=== PATIENT | female | born 1935 | race Caucasian/White ===

== ENCOUNTER 2019-08-28 16:52 | Emergency (ER) | payer MEDICARE, OTHER ==
--- NOTE | 2019-08-28 17:15 | EDM.PDOC ---
ED HPI GENERAL MEDICAL PROBLEM - General Chief Complaint: Skin Complaint Stated Complaint: RT LEG THIGH WELT WITH BRUISE Time Seen by Provider: 08/28/19 17:00 Source of Information: Reports: Patient, Family (son) History Limitations: Reports: No Limitations - History of Present Illness INITIAL COMMENTS - FREE TEXT/NARRATIVE: 83-year-old female presents the ED with a very pruritic papule medial proximal thigh that started over 2 days ago. She awoke with it and presumably was stung or bitten by some form of insect during her sleep. The area is intensely pruritic. Concern arose today because of bruising that showed up lateral and around the area today. The itching is improved with hydrocortisone cream topically. Onset: Sudden Onset Date: 08/26/19 (Awoke with symptoms 2 mornings ago.) Duration: Day(s):, Other (Changing in terms that there is a superficial bruising showing up around the lesion today.) Location: Reports: Lower Extremity, Right (Right proximal anterior thigh.) Quality: Reports: Other (Tenths pruritus at the papule. Surrounding bruising) Severity: Mild Improves with: Reports: Medication (Itching improves with topical hydrocortisone 1% cream.) Worsens with: Reports: None Context: Reports: Other (Unknown although clinically it appears to be an insect sting.). Denies: Activity, Exercise, Lifting, Sick Contact, Trauma Associated Symptoms: Reports: No Other Symptoms Treatments STITCHER UTILITY: Reports: Other (see below) - Related Data Allergies Allergy/AdvReac Type Severity Reaction Status Date / Time estradiol Allergy Rash Verified 06/18/16 10:48 Home Meds: Home Meds Alendronate Sodium [Alendronate] 35 mg PO MO 08/01/14 [History] Estrogens, Conjugated [Premarin Vaginal Crm] 1 applicful VAG BEDTIME 08/01/14 [ History] Fenofibrate Nanocrystallized [Tricor] 145 mg PO DAILY 08/01/14 [History] Levothyroxine [Synthroid] 88 mcg PO DAILY 08/01/14 [History] atorvaSTATin [Lipitor] 20 mg PO BEDTIME 08/01/14 [History] Biotin 1 mg PO BID 06/15/16 [History] Calcium/Magnesium/Vit D3 [Calcium 500 MG] 500 mg PO DAILY 06/15/16 [History] Ciprofloxacin HCl [Cipro] 250 mg PO ASDIRECTED 06/15/16 [History] Cranberry 500 mg PO DAILY PRN 06/15/16 [History] Cyanocobalamin (Vitamin B12) [Vitamin B13] 500 mcg PO DAILY 06/15/16 [History] Garlic 1,000 mg PO DAILY 06/15/16 [History] L. Acidophilus/L. Rhamnosus [Probiotic 15 Billion Cell Cap] 1 each PO DAILY [History] Lecithin 1,200 mg PO DAILY 06/15/16 [History] Magnesium 200 mg PO DAILY 06/15/16 [History] Multivitamin [Multivitamins] 1 each PO DAILY 06/15/16 [History] Pyridoxine HCl [Vitamin B-6] 100 mg PO DAILY 06/15/16 [History] Ubidecarenone [Co Q10] 100 mg PO DAILY 06/15/16 [History] Past Medical History Cardiovascular History: Reports: High Cholesterol (Particularly hypertriglyceridemia.) Gastrointestinal History: Reports: GERD Genitourinary History: Reports: Renal Calculus, UTI, Recurrent Neurological History: Endocrine/Metabolic History: Reports: Hypothyroidism (On levothyroxine supplement.), Osteoporosis, Vitamin D Deficiency - Past Surgical History Head Surgeries/Procedures: Reports: None Other Head Surgeries/Procedures: Patient has had plastic surgery of the face which includes upper and lower blepharoplasties forehead or browlift as well as dermabrasion to the nasolabial fold areas and neck tuck. He is healing up from these wounds over the last 6 months. HEENT Surgical History: Reports: None GI Surgical History: Reports: Appendectomy Dermatological Surgical History: Reports: None Social & Family History - Living Situation & Occupation Living situation: Reports: Occupation: Retired ED ROS GENERAL - Review of Systems Review Of Systems: See Below Constitutional: Denies: Fever, Chills, Malaise, Weakness, Fatigue HEENT: Reports: No Symptoms Respiratory: Reports: No Symptoms Cardiovascular: Reports: No Symptoms, Other (Has hyper cholesterolemia.) Endocrine: Reports: Fatigue GI/Abdominal: Reports: No Symptoms : Reports: Frequency Musculoskeletal: Reports: Joint Pain (Knee sips low back and neck at times.) Skin: Reports: Other (Pruritic skin papule) Neurological: Reports: No Symptoms ( proximal right thigh see history of present illness) Psychiatric: Reports: No Symptoms Hematologic/Lymphatic: Reports: No Symptoms Immunologic: Reports: No Symptoms ED EXAM, SKIN/RASH Exam: See Below Exam Limited By: No Limitations General Appearance: Alert, WD/WN, No Apparent Distress, Other (Vital signs are all normal except for blood pressure slightly elevated 1 [id number].) Eye Exam: Bilateral Eye: Normal Inspection (Has had upper and lower blepharoplasties performed recently.) Skin: Other ( has a papular erythematous area approximately 6-7 mm in oval shape proximal right anterior thigh. It does appear to have a central punctum suggesting this is an insect sting with localized allergic reaction. The surrounding bruising is from scratching probably at night will she's sleeping. Her greatest concern was. Itching is slowly improving and does improve with hydrocortisone cream topically.) Location, Skin: Lower Extremity, Right (Right proximal anterior thigh just below the panty line.) Course - Vital Signs Last Recorded V/S: Last Vital Signs Temp 36.2 C 08/28/19 17:14 Pulse 66 08/28/19 17:14 Resp 20 08/28/19 17:14 BP 144/74 H 08/28/19 17:14 Pulse Ox 97 08/28/19 17:14 - Radiology Interpretation Free Text/Narrative:: 83-year-old female presents the ED with a very pruritic erythematous papule about 7 mm in size anterior proximal right thigh. She awoke with this lesion about 2 days ago. The area is intensely pruritic. When I look at it it it does appear to be an insect sting with localized allergic response. Likely from a spider this time of year. There is surrounding bruising particularly lateral to the lesion but this is from scratching likely when she is sleeping. He assured in this regard. She'll continue to use hydrocortisone cream on the lesion as it is easing up the itch and will likely be much improved by the end of tomorrow she'll be 72 hours. Patient and son reassured in this regard. Departure - Departure Time of Disposition: 17:12 Disposition: Home, Self-Care 01 Condition: Fair Clinical Impression: Local reaction to insect sting Qualifiers: Encounter type: initial encounter Injury intent: accidental or unintentional Qualified Code(s): T63.481A - Toxic effect of venom of other arthropod, accidental (unintentional), initial encounter - Discharge Information *PRESCRIPTION DRUG MONITORING PROGRAM REVIEWED*: Not Applicable *COPY OF PRESCRIPTION DRUG MONITORING REPORT IN PATIENT ADRIAN: Not Applicable Referrals: Josue Caldwell MD [Primary Care Provider] - Forms: ED Department Discharge Additional Instructions: Evaluation the emergency room in regards to a strongly suspected insects sting to the upper anterior right thigh that occurred over 2 days ago. Has been intensely itchy indicating a localized allergic response. 3 at this time what type of insect cause this inflammation. It usually is an insect that contains some venom that we become allergic to such as a wasp, Bee, or spider bite. The bruising surrounding it is usually due to scratching the area sometimes at night when sleeping and it has caused some superficial bruising in the skin lateral to the sting. Continue using hydrocortisone cream on it up to 3 times or 4 times daily. It usually will dissipate on its own over the next 24 hours or so.
[2019-08-28 17:17] VITALS: BP 144/74; PULSE 66
== END 2019-08-28 17:21 | disposition home or self-care (01) ==
LOC: JD.ED 16:52
DX: T63.481A Toxic effect of venom of other arthropod, accidental (unintentional), initial encounter (principal); L53.0 Toxic erythema; E78.00 Pure hypercholesterolemia, unspecified; E03.9 Hypothyroidism, unspecified; Z79.890 Hormone replacement therapy; Z88.8 Allergy status to other drugs, medicaments and biological substances; Z79.899 Other long term (current) drug therapy
CPT/HCPCS: 99282; 99283

== ENCOUNTER 2025-05-03 13:25 | Emergency (ER) | payer MEDICARE, OTHER ==
[2025-05-03] MEDS: Meclizine 25 MG Tab PO ONE (14:12)
[2025-05-03] MEDS: Sodium Chloride 0.9% 1,000 ML IV ONE (14:12)
[2025-05-03 14:21] VITALS: BP 135/85; PULSE 80
[2025-05-03 14:34] LABS: BASOPHILS PERCENT AUTO 0.3 % (0.0-1.0); EOSINOPHILS PERCENT AUTO 0.3 % (0.0-6.0); HEMATOCRIT 41.5 % (37.0-47.0); HEMOGLOBIN 13.9 gm/dl (12.0-16.0); IMMATURE GRAN ABSOLUTE AUTO 0.02 K/mm3 (0.00-0.05); IMMATURE GRAN PERCENT AUTO 0.3 % (0.0-0.4); LYMPHOCYTES ABSOLUTE AUTO 2.4 K/mm3 (1.0-4.8); LYMPHOCYTES PERCENT AUTO 30.9 % (24.0-44.0); MEAN CORPUSCULAR HEMOGLOBIN 32.1 pg (28.0-32.0); MEAN CORPUSCULAR HGB CONC 33.5 g/dl (32.0-36.0); MEAN CORPUSCULAR VOLUME 95.8 fl (83.0-99.0); MEAN PLATELET VOLUME 10.1 fl (9.4-12.3); MONOCYTES ABSOLUTE AUTO 0.7 K/mm3 (0.0-0.8); MONOCYTES PERCENT AUTO 8.4 % (0.0-8.0); NEUTROPHILS ABSOLUTE AUTO 4.7 K/mm3 (1.8-7.7); NEUTROPHILS PERCENT AUTO 59.8 % (41.0-71.0); PLATELET COUNT,PLT 253 K/mm3 (150-400); RED BLOOD CELL COUNT 4.33 M/mm3 (4.10-5.30)
[2025-05-03 14:56] LABS: A/G RATIO 1.2 (1-2); ALBUMIN 3.8 g/dl (3.4-5.0); ANION GAP 11.8 (5-15); BILIRUBIN TOTAL 0.4 mg/dL (0.2-1.0); BUN/CREATININE RATIO 21.3 (14-18); CALCIUM 9.9 mg/dL (8.5-10.1); CREATININE 0.8 mg/dL (0.55-1.02); EST CRCL DRUG DOSING (CG) 37.6 mL/min; MAGNESIUM 1.8 mg/dL (1.8-2.4); POTASSIUM,K 3.8 mEq/L (3.5-5.1)
== END 2025-05-03 15:27 | disposition home or self-care (01) ==
LOC: JD.ED 13:25
DX: R42 Dizziness and giddiness (principal); E78.00 Pure hypercholesterolemia, unspecified; E03.9 Hypothyroidism, unspecified; Z88.8 Allergy status to other drugs, medicaments and biological substances; Z79.899 Other long term (current) drug therapy; Z79.890 Hormone replacement therapy
CPT/HCPCS: 36415; 80053; 83735; 84484; 85025; 93005; 96360; 99284; A9270; J7030; 99283